=== PATIENT | male | born 1995 | race African-American/Black ===

== ENCOUNTER 2016-06-28 12:02 | Emergency (ER) | payer SELFPAY ==
[~2016-06-28] VITALS: Ht 175.3 cm; Wt 59.0 kg
[2016-06-28 12:06] VITALS: BP 134/80
[2016-06-28] MEDS ORDERED: MIDAZOLAM HCL/PF 5 MG/5 ML VIAL. ONE (12:33)
--- NOTE | 2016-06-28 13:24 | PHYS DOC ---
Past Medical History Past Medical History: No Pertinent History Past Surgical History: No Surgical History Smokin Pack Per Day Alcohol Use: Rarely Drug Use: Marijuana Adult General Chief Complaint Chief Complaint: SEXUALLY TRANSMITTED DISEASE HPI HPI Patient is a 20 year old male who presents with a bump on his penis that started approximately one week ago. He was able to express purulent drainage from the wound. He denies any other wounds in the genital region. He is sexually active but denies any penile discharge. He has not had any urinary symptoms, testicular pain or swelling, abdominal pain, flank pain, nausea, vomiting, or fevers. He does not have a PCP. Review of Systems Review of Systems Constitutional: Denies fever or chills. [] GI: Denies abdominal pain, nausea, vomiting, bloody stools or diarrhea. [] : Denies dysuria, hematuria or urinary frequency. Denies testicular pain or swelling, penile discharge. Musculoskeletal: Denies back pain or joint pain. [] Integument: Denies rash. Reports lesion on the penis. Current Medications Current Medications Current Medications Medications (Trade) Dose Ordered Sig/Stacie Start Time Stop Time Status Last Admin Dose Admin Midazolam HCl (Versed) 5 mg STK-MED ONCE 06/28/16 12:33 06/28/16 12:34 DC Allergies Allergies Allergies Coded Allergies Type Severity Reaction Last Updated Verified No Known Drug Allergies 06/28/16 No Physical Exam Physical Exam Constitutional: Well developed, well nourished, no acute distress, non-toxic appearance. [] HENT: Normocephalic, atraumatic, oropharynx moist. [] Eyes: PERRLA, EOMI, conjunctiva normal, no discharge. [] Neck: Normal range of motion, no tenderness, supple, no stridor. [] Cardiovascular: Heart rate regular rhythm, no murmur. [] Lungs & Thorax: Bilateral breath sounds clear to auscultation without wheezes, rales, or rhonchi. [] Abdomen: Bowel sounds normal, soft, no tenderness, no masses, no pulsatile masses. 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 Circumcised. There is a less than 1 cm area of induration at the base of the penis. There is no discharge from the penis. There is no testicular tenderness or swelling. Skin: Warm, dry, no erythema, no rash. Folliculitis at the base of the penis. Neurologic: Alert and oriented X 3, normal motor function, normal sensory function, no focal deficits noted. [] Psychologic: Affect normal, judgement normal, mood normal. [] Current Patient Data Vital Signs Vital Signs Date Time Temp Pulse Resp B/P Pulse Ox O2 Delivery O2 Flow Rate FiO2 06/28/16 12:06 97.9 115 18 134/80 97 Room Air 97.9 EKG EKG [] Radiology/Procedures Radiology/Procedures [] Course & Med Decision Making Course & Med Decision Making Pertinent Labs and Imaging studies reviewed. (See chart for details) [] Dragon Disclaimer Dragon Disclaimer This electronic medical record was generated, in whole or in part, using a voice recognition dictation system. Departure Departure Impression: Primary Impression: Folliculitis Disposition: 01 HOME, SELF-CARE Condition: STABLE Referrals: NO PCP (PCP) Patient Instructions: Folliculitis Additional Instructions: You appear to have an ingrown hair, or folliculitis, a localized infection at the hair follicle. Please apply topical antibiotic ointment to the area. Please follow-up with a primary care doctor within the next week. Return to the emergency department if you have any new or concerning symptoms. SUKUMAR GARCIA Jun 28, 2016 13:24
== END 2016-06-28 13:05 | disposition home or self-care (01) ==
LOC: ER 12:02
DX: L73.8 Other specified follicular disorders (principal); F12.10 Cannabis abuse, uncomplicated; F17.200 Nicotine dependence, unspecified, uncomplicated
CPT/HCPCS: 99283